=== PATIENT | male | born 1940 | race Caucasian/White ===

== ENCOUNTER 2017-09-04 11:24 | Observation (INO) | payer MEDICARE, OTHER ==
[2017-09-04 12:06] VITALS: BMI 27.8
--- NOTE | 2017-09-04 12:41 | C.PDOC ---
History Of Present Illness 77yo male with past medical history of hypertension, presents to ED for evaluation after he had a syncopal episode last night. Patient states he was at his desk doing paperwork and was calling someone on the phone during which he had a syncopal episode. Patient states he has no recollection of his episode and reports when he came to, he was dazed and confused. He reports there was carpet on the floor and is unsure of head injury due to a fall during the syncopal episode. Of note, patient states he was exercising after a long time yesterday and states he gets hypotensive after long periods of exertion. He denies any chest pain, headache, shortness of breath, abdominal pain. He has no other medical complaints. Time Seen by Provider: 09/04/17 11:59 Chief Complaint (Nursing): Syncope History Per: Patient History/Exam Limitations: no limitations Onset/Duration Of Symptoms: Days Number Of Syncopal Episodes: 1 Activity At Onset Of Symptoms: Sitting Associated Symptoms Preceding Syncopal Episode: No Predromal Symptoms (Sudden Onset) Past Medical History Reviewed: Historical Data, Nursing Documentation, Vital Signs Vital Signs: Last Vital Signs Temp 97.8 F 09/04/17 14:32 Pulse 61 09/04/17 14:32 Resp 18 09/04/17 14:32 BP 152/74 H 09/04/17 14:32 Pulse Ox 100 09/04/17 14:32 - Medical History PMH: Depression, HTN, Hypercholesterolemia Denies: Chronic Kidney Disease Surgical History: Denies: Pacemaker - [facility] Procedures COLONOSCOPY (01/09/05) ESOPHAGOGASTRODUODENOSCOPY [EGD] W/CLOSED BIOPSY (02/10/00) Family History: States: Unknown Family Hx - Social History Hx Alcohol Use: Yes (SOCIAL) Hx Substance Use: No - Immunization History Hx Tetanus Toxoid Vaccination: No Hx Influenza Vaccination: No Hx Pneumococcal Vaccination: No Review Of Systems Except As Marked, All Systems Reviewed And Found Negative. Cardiovascular: Negative for: Chest Pain Respiratory: Negative for: Shortness of Breath Gastrointestinal: Negative for: Abdominal Pain Neurological: Positive for: Other (syncopal episode). Negative for: Headache Physical Exam - Physical Exam Appears: Non-toxic, No Acute Distress Skin: Normal Color, Warm, Dry Head: Normacephalic, Tenderness (small tender hematoma to right posterior scalp) Eye(s): bilateral: Normal Inspection, PERRL, EOMI Neck: Normal ROM, Supple Cardiovascular: Rhythm Regular, Murmur Respiratory: Normal Breath Sounds Gastrointestinal/Abdominal: Normal Exam, Soft, No Tenderness Back: Normal Inspection Extremity: Normal ROM, No Pedal Edema Neurological/Psych: Oriented x3, Normal Speech, Normal Cognition, Normal Cranial Nerves, Normal Motor, Normal Sensation, Normal Reflexes ED Course And Treatment - Laboratory Results Result Diagrams: 09/04/17 13:10 09/04/17 13:10 ECG: Interpreted By Me, Viewed By Me ECG Rhythm: Sinus Rhythm, 1st Degree HB, R BBB Rate From EC O2 Sat by Pulse Oximetry: 97 (RA) Pulse Ox Interpretation: Normal Medical Decision Making Medical Decision Making: Impression: Syncopal episode Plan: -- Labs -- CT Head -- CXR Disposition Discussed With : Art Pfeiffer Doctor Will See Patient In The: Hospital Counseled Patient/Family Regarding: Studies Performed, Diagnosis - Disposition Disposition: HOSPITALIZED Disposition Time: 14:42 Condition: STABLE Forms: [facility] ([place]) - POA Present On Arrival: None - Clinical Impression Clinical Impression: Syncope - Scribe Statement The provider has reviewed the documentation as recorded by the Wolfgang Castro Provider Attestation: All medical record entries made by the Wolfgang were at my direction and personally dictated by me. I have reviewed the chart and agree that the record accurately reflects my personal performance of the history, physical exam, medical decision making, and the department course for this patient. I have also personally directed, reviewed, and agree with the discharge instructions and disposition. Decision To Admit - Pt Status Changed To: Hospital Disposition Of: Observation - InPatient: Physician Admission Certification: I certify that this patient requires 2 or more midnights of care for the following reason:: syncope - . Bed Request Type: Telemetry Patient Diagnosis: Syncope
[2017-09-04 13:14] LABS: BASO # 0.1 K/uL (0.0-0.2); BASO % 1.2 % (0.0-2.0); EOS # 0.2 K/uL (0.0-0.7); EOS % 2.4 % (0.0-4.0); HEMOGLOBIN 14.4 g/dL (12.0-18.0); LYMPH # 1.9 K/uL (1.0-4.3); LYMPH % 26.8 % (20.0-40.0); MEAN CELL VOLUME 104.4 fL (80.0-94.0); MEAN CORPUSCULAR HEMOGLOBIN 35.6 pg (27.0-31.0); MEAN CORPUSCULAR HGB CONC 34.1 g/dL (33.0-37.0); MEAN PLATELET VOLUME 9.4 fL (7.2-11.7); MONO # 0.6 K/uL (0.0-0.8); MONO % 8.4 % (0.0-10.0); NEUT # 4.4 K/uL (1.8-7.0); NEUT % 61.2 % (50.0-75.0); RBC 4.05 Mil/uL (4.40-5.90); WHITE BLOOD COUNT 7.3 K/uL (4.8-10.8)
--- NOTE | 2017-09-04 13:23 | CT ---
PROCEDURE: CT HEAD WITHOUT CONTRAST. HISTORY: AMS COMPARISON: None available. TECHNIQUE: Axial computed tomography images were obtained through the head/brain without intravenous contrast. Radiation dose: Total exam DLP = 944.36 mGy-cm. This CT exam was performed using one or more of the following dose reduction techniques: Automated exposure control, adjustment of the mA and/or kV according to patient size, and/or use of iterative reconstruction technique. FINDINGS: HEMORRHAGE: No intracranial hemorrhage. BRAIN: Diffuse atrophy with prominence of the ventricles and sulci noted. No mass effect or edema. Intracranial atherosclerotic cyst. Scattered periventricular and subcortical white matter hypodensities, which are nonspecific, but often seen with chronic microvascular ischemic disease. Please note that MRI with diffusion imaging is more sensitive in the detection of acute ischemic event. VENTRICLES: No hydrocephalus. CALVARIUM: Unremarkable. PARANASAL SINUSES: Unremarkable as visualized. No significant inflammatory changes. MASTOID AIR CELLS: Unremarkable as visualized. No inflammatory changes. OTHER FINDINGS: None. IMPRESSION: No acute intracranial pathology identified. Findings as above.
--- NOTE | 2017-09-04 13:28 | RAD ---
PROCEDURE: CHEST RADIOGRAPH, 1 VIEW HISTORY: AMS COMPARISON: 03/16/2017 FINDINGS: LUNGS: Current lung volumes less than before. No interval consolidation PLEURA: No pneumothorax or significant appearing pleural fluid seen. A minimal left costophrenic angle effusion and/or thickening is not excluded. Shallow lung volumes limits optimal evaluation CARDIOVASCULAR: Cardiomegaly similar OSSEOUS STRUCTURES: Minimal bilateral shoulder arthrosis. And mild inferior thoracic spondylosis VISUALIZED UPPER ABDOMEN: Normal. OTHER FINDINGS: None. IMPRESSION: No interval pathology noted.
[2017-09-04 13:56] LABS: ALB/GLOB RATIO 1.2 (1.0-2.1); ALBUMIN 4.1 g/dL (3.5-5.0); CALCIUM 10.2 mg/dl (8.6-10.4)
[2017-09-04 14:11] LABS: TROPONIN I 0.014 ng/mL (0.00-0.120)
--- NOTE | 2017-09-04 18:29 | CP.PCM.HP ---
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 According to his , he slowly regained his full consciousness after 15 minutes. There was no urine of fecal incontinence, no focal weakness after his recovery. Known to have a hypertension, a hyperlipidemia, a mild aortic stenosis, a s/p left partial nephrectomy for cancer on 2011 at [facility], he had a normal nuclear stress test 2 years ago. Present on Admission - Present on Admission Any Indicators Present on Admission: No Review of Systems - Neurological Neurological: Syncope Past Patient History - Infectious Disease Hx of Infectious Diseases: None - Tetanus Immunizations Tetanus Immunization: Unknown - Past Medical History & Family History Past Medical History?: Yes - Past Social History Smoking Status: Never Smoked Alcohol: None Drugs: Denies Home Situation {Lives}: With Family Domestic Violence: Negative - CARDIAC Hx Hypercholesterolemia: Yes Hx Hypertension: Yes Hx Pacemaker: No - PULMONARY Hx Respiratory Disorders: No - NEUROLOGICAL Hx Paralysis: No - HEENT Hx Cataracts: Yes - RENAL Hx Chronic Kidney Disease: No - ENDOCRINE/METABOLIC Hx Endocrine Disorders: Yes 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) - HEMATOLOGICAL/ONCOLOGICAL Hx Blood Transfusions: No Hx Blood Transfusion Reaction: No Hx Cancer: Yes (left kidney) - INTEGUMENTARY Hx Dermatological Problems: No - MUSCULOSKELETAL/RHEUMATOLOGICAL Hx Musculoskeletal Disorders: No - GASTROINTESTINAL Hx Gastrointestinal Disorders: No - GENITOURINARY/GYNECOLOGICAL Hx Genitourinary Disorders: No - PSYCHIATRIC Hx Depression: Yes Hx Substance Use: No - SURGICAL HISTORY Hx Surgeries: Yes (PART NEPHRECTOMY, BRITTANY CATARACTS in 2011 at [facility].) - ANESTHESIA Hx Anesthesia Reactions: No Hx Malignant Hyperthermia: No Meds Allergies/Adverse Reactions: Allergies Allergy/AdvReac Type Severity Reaction Status Date / Time tramadol Allergy Severe ITCHING Verified 10/18/16 17:58 Physical Exam - Constitutional Appears: Well, No Acute Distress - Head Exam Head Exam: NORMAL INSPECTION - Eye Exam Eye Exam: Normal appearance - ENT Exam ENT Exam: Normal Exam - Neck Exam Neck exam: Positive for: Normal Inspection Additional comments: Mild left carotid bruit. - Respiratory Exam Respiratory Exam: Clear to Auscultation Bilateral, NORMAL BREATHING PATTERN - Cardiovascular Exam Cardiovascular Exam: REGULAR RHYTHM, Systolic Murmur - GI/Abdominal Exam GI & Abdominal Exam: Normal Bowel Sounds, Soft - Rectal Exam Rectal Exam: Deferred - Exam Exam: NORMAL INSPECTION - Extremities Exam Extremities exam: Positive for: normal inspection - Back Exam Back exam: NORMAL INSPECTION - Neurological Exam Neurological exam: Alert, Oriented x3 - Psychiatric Exam Psychiatric exam: Anxious - Skin Skin Exam: Dry, Intact, Normal Color, Warm Results - Vital Signs Recent Vital Signs: Last Vital Signs Temp 97.8 F 09/04/17 14:32 Pulse 61 09/04/17 14:32 Resp 18 09/04/17 14:32 BP 152/74 H 09/04/17 14:32 Pulse Ox 97 09/04/17 14:42 - Labs Result Diagrams: 09/04/17 13:10 09/04/17 13:10 Labs: Laboratory Results - last 24 hr 09/04/17 09/04/17 09/04/17 12:02 13:10 13:10 WBC 7.3 RBC 4.05 L Hgb 14.4 Hct 42.2 MCV 104.4 H MCH 35.6 H MCHC 34.1 RDW 13.0 Plt Count 138 MPV 9.4 Neut % (Auto) 61.2 Lymph % (Auto) 26.8 [place] % (Auto) 8.4 Eos % (Auto) 2.4 Baso % (Auto) 1.2 Neut # 4.4 Lymph # 1.9 [place] # 0.6 Eos # 0.2 Baso # 0.1 Sodium 140 Potassium 4.6 Chloride 100 Carbon Dioxide 33 H Anion Gap 11 BUN 21 H Creatinine 1.6 H Est GFR ( Amer) 51 Est GFR (Non-Af Amer) 42 POC Glucose (mg/dL) 176 H Random Glucose 120 H Calcium 10.2 Total Bilirubin 0.6 AST 33 ALT 21 Alkaline Phosphatase 56 Troponin I 0.0140 Total Protein 7.7 Albumin 4.1 Globulin 3.6 Albumin/Globulin Ratio 1.2 Assessment & Plan (1) Syncope Assessment and Plan: Neurological evaluation. Echo to assess . Carotid dupl>ex scan, MRI of the head, EEG Status: Acute (2) Aortic stenosis Status: Chronic (3) Hypertension Status: Acute Decision To Admit - Pt Status Changed To: Hospital Disposition Of: Observation - . Bed Request Type: Telemetry Admitting Physician: Art Pfeiffer
[2017-09-05 00:56] VITALS: RESP 20
[2017-09-05] MEDS ORDERED: VILAZODONE HCL 10 MG PO SCH (10:00)
--- NOTE | 2017-09-05 11:29 | VASCLAB ---
PROCEDURE: HISTORY: syncope COMPARISON: None available. TECHNIQUE: Grayscale and duplex Doppler evaluation of the cervical carotid and vertebral arteries were performed. The common carotid, carotid bifurcations and cervical Internal Carotid Artery (ICA) and proximal External Carotid Artery (ECA) were evaluated. The vertebral arteries were evaluated for gross patency and flow direction. Report prepared by Rony Lubin, BS, RVT FINDINGS: RIGHT CAROTID ARTERIES: 1. Common Carotid Artery: No significant focal plaque formation of the right common carotid artery. Maximum Peak Systolic velocity: 131 cm/sec: End-diastolic velocity 16 cm/sec. 2. Carotid Bifurcation: plaque formation. Maximum Peak Systolic velocity: 99 cm/sec: End-diastolic velocity 8 cm/sec. 3. Internal Carotid Artery: No significant focal plaque. Plaque description: 3.1. Proximal Segment: Peak systolic velocity 95 cm/sec: End-diastolic velocity 19 cm/sec - % stenosis 0-15% 3.2. Middle Segment: Peak systolic velocity 109 cm/sec: End-diastolic velocity 25 cm/sec - % stenosis 0-15% 3.3. Distal Segment: Peak systolic velocity 100 cm/sec: End-diastolic velocity 25 cm/sec - % stenosis 0-15% 4. External Carotid Artery: No significant focal plaque formation. Peak systolic velocity 123 cm/sec 5. ICA/CCA Ratio: 0.8 LEFT CAROTID ARTERIES: 1. Common Carotid Artery: No significant focal plaque formation of the left common carotid artery. Maximum Peak Systolic velocity: 136 cm/sec: End-diastolic velocity 15 cm/sec. 2. Carotid Bifurcation: plaque formation. Maximum Peak Systolic velocity: 139 cm/sec: End-diastolic velocity 21 cm/sec. 3. Internal Carotid Artery: No significant focal plaque. Plaque description: 3.1. Proximal Segment: Peak systolic velocity 73 cm/sec: End-diastolic velocity 16 cm/sec - % stenosis 0-15% 3.2. Middle Segment: Peak systolic velocity 77 cm/sec: End-diastolic velocity 16 cm/sec - % stenosis 0-15% 3.3. Distal Segment: Peak systolic velocity 67 cm/sec: End-diastolic velocity 16 cm/sec - % stenosis 0-15% 4. External Carotid Artery: No significant focal plaque formation. Peak systolic velocity 88 cm/sec 5. ICA/CCA Ratio: 1.0 VERTEBRAL ARTERIES: 1. Right Vertebral Artery: The right vertebral artery flow direction is antegrade. 2. Left Vertebral Artery: The left vertebral artery flow direction is antegrade. OTHER FINDINGS: 1. Right Brachial Blood pressure: 140 mmHg. 2. Left Brachial Blood pressure: 140 mmHg. IMPRESSION: RIGHT: Duplex scan does not suggest hemodynamically significant stenosis of the right extracranial carotid arteries. LEFT: Duplex scan does not suggest hemodynamically significant stenosis of the left extracranial carotid arteries.
--- NOTE | 2017-09-05 13:48 | MRI ---
PROCEDURE: MRI BRAIN WITHOUT CONTRAST HISTORY: Syncope COMPARISON: Noncontrast head CT from 09/04/2017. TECHNIQUE: Multiplanar, multisequence MR images of the brain were obtained without intravenous contrast enhancement. FINDINGS: HEMORRHAGE: None DWI: No evidence of an acute or early subacute infarction. BRAIN PARENCHYMA: There are moderate chronic microangiopathic changes. There no mass, mass effect or abnormal extra-axial fluid collection. The midline sagittal structures are normal. VENTRICLES: There is moderate age-related global parenchymal volume loss and proportionate enlargement of the ventricles and cortical sulci. CRANIUM: There is normal bone marrow signal pattern. ORBITS: Grossly unremarkable. PARANASAL SINUSES/MASTOIDS: Predominantly clear. VASCULAR SYSTEM: There are normal signal voids in the larger intracranial arteries. OTHER FINDINGS: None. IMPRESSION: 1. No acute intracranial abnormality. 2. Moderate chronic microangiopathic changes and moderate age-related global parenchymal volume loss.
--- NOTE | 2017-09-05 18:34 | CP.PCM.PN ---
Subjective - Date & Time of Evaluation Date of Evaluation: 09/05/17 Time of Evaluation: 18:32 - Subjective Subjective: Patient has no complaint. EEG, carotid duplex scan, head MRI WNL. Awaiting Echo to assess . Objective - Vital Signs/Intake and Output Vital Signs (last 24 hours): Temp Pulse Resp BP Pulse Ox 98.3 F 55 L 20 116/65 96 09/05/17 15:44 09/05/17 15:44 09/05/17 15:44 09/05/17 15:44 09/05/17 15:44 - Medications Medications: Current Medications Amlodipine Besylate (Norvasc) 10 mg PO HS [facility] Last Admin: 09/04/17 22:15 Dose: 10 mg Aspirin (Ecotrin) 81 mg PO DAILY [facility] Last Admin: 09/05/17 09:35 Dose: 81 mg Losartan Potassium (Cozaar) 100 mg PO QPM [facility] Last Admin: 09/04/17 18:14 Dose: 100 mg Rosuvastatin Calcium (Crestor) 20 mg PO HS [facility] Last Admin: 09/04/17 22:15 Dose: 20 mg Tamsulosin HCl (Flomax) 0.4 mg PO DAILY [facility] Last Admin: 09/05/17 09:35 Dose: 0.4 mg Zolpidem Tartrate (Ambien) 5 mg PO HS PRN PRN Reason: Insomnia Last Admin: 09/04/17 22:38 Dose: 5 mg - Labs Labs: 09/04/17 13:10 09/04/17 13:10 - Constitutional Appears: No Acute Distress - Head Exam Head Exam: NORMOCEPHALIC - Eye Exam Eye Exam: Normal appearance - ENT Exam ENT Exam: Normal Exam - Neck Exam Neck Exam: Normal Inspection - Respiratory Exam Respiratory Exam: Clear to Ausculation Bilateral - Cardiovascular Exam Cardiovascular Exam: REGULAR RHYTHM, Murmur - GI/Abdominal Exam GI & Abdominal Exam: Soft, Normal Bowel Sounds - Rectal Exam Rectal Exam: Deferred - Extremities Exam Extremities Exam: Normal Inspection - Back Exam Back Exam: NORMAL INSPECTION - Neurological Exam Neurological Exam: Alert, Awake, Normal Gait, Oriented x3 - Psychiatric Exam Psychiatric exam: Anxious - Skin Skin Exam: Dry, Intact, Normal Color, Warm Assessment and Plan (1) Syncope Assessment & Plan: Awaiting Echo. Status: Acute (2) Aortic stenosis Assessment & Plan: Awaiting Echo. Status: Chronic (3) Hypertension Assessment & Plan: To continue same meds. Status: Acute
--- NOTE | 2017-09-06 00:29 | CON ---
DATE: NEUROLOGY CONSULTATION REASON FOR CONSULTATION: Episode of passing out. HISTORY OF PRESENT ILLNESS: The patient is a 77-year-old male, who has been asked for evaluation of episode of passing out. The patient was sitting at his desk and was on the phone. The last thing he remembers is being on the phone, and after that the heard a thump and found him on the floor. The patient was unconscious for a brief period of time. There was no urinary incontinence or tongue biting. The patient did not experience any chest pain, palpitation or light headedness before passing out. He denies any focal weakness in the arms or legs. At present, he feels fine. REVIEW OF SYSTEMS: Denies any headache, dizziness, chest pain, shortness of breath, abdominal pain, constipation, diarrhea, dysuria, cough or sputum production. PAST MEDICAL HISTORY: Includes mild aortic stenosis, hypertension, hyperlipidemia, history of renal cancer. PAST SURGICAL HISTORY: Includes nephrectomy. MEDICATIONS AT HOME: Include amlodipine, Viibryd, Diovan, Flomax, multivitamin, Lipitor, and aspirin. ALLERGIES: TO TRAMADOL. SOCIAL HISTORY: Denies smoking, socially drinks alcohol, denies use of any illicit drugs. FAMILY HISTORY: Reviewed and noncontributory to the case. PHYSICAL EXAMINATION: GENERAL: The patient is an elderly pleasant male, lying on the bed, in no acute distress. VITAL SIGNS: Blood pressure 131/73, heart rate is 57 per minute, breathing at the rate of 16 per minute, temperature is 98 degrees Fahrenheit. HEENT: Head is normocephalic, atraumatic. NECK: Supple. There are no carotid bruits. LUNGS: Clear. CARDIOVASCULAR SYSTEM: S1 and S2 are audible. No murmurs. ABDOMEN: Soft and nontender with bowel sounds present. NEUROLOGY: Mental status: The patient is awake, alert, oriented to time, place, person. Speech is fluent. Naming and repetition normal. Memory and cognition are intact. Cranial nerve examination: Pupils are 3 mm, bilaterally reactive to light. Visual locke are full. Extraocular movements are intact. There is no facial asymmetry. Palate is upgoing bilaterally and tongue is midline. Motor examination: Tone is normal. Power is 5/5 bilaterally in all extremities. Reflexes are +1 and symmetrical. Plantars downgoing bilaterally. Cerebellar examination: [id number]-puzz shows no dysmetria. Gait is deferred at the moment. LABORATORY DATA: Labs reviewed. MRI of the brain shows no acute intracranial abnormality. Moderate chronic microangiopathic changes and moderate age-related global parenchymal volume loss. He had a carotid Doppler study, which shows no significant stenosis. He also had an electroencephalogram done, which was normal. IMPRESSION: Syncope. Rule out any cardiac arrhythmias verses questionable seizure. RECOMMENDATION: 1. The patient had an electroencephalogram, which is normal. 2. The patient to have cardiac monitoring to look for any evidence or cardiac arrhythmias. 3. If no other etiology is found, then the patient may need an extended electroencephalographic monitoring. 4. If the patient is clear from cardiac standpoint, then he may be discharged with outpatient followup. Thank you for the opportunity to participate in the care of this patient. Yue Wakefield MD
--- NOTE | 2017-09-06 07:05 | EEG ---
DATE: INTRODUCTION: This is a digitally recorded EEG monitoring using the standard EEG montages. BACKGROUND RHYTHM: The EEG shows a background activity of 8 to 9 Hz alpha activity in parieto-occipital region. The EEG activity is bilaterally symmetrical and synchronous. There is attenuation of the background activity on eye opening. Drowsiness was noted by slowing of the background activity. ABNORMAL POTENTIALS: No spike, sharp waves, or focal slowing was seen. PHOTIC STIMULATION AND HYPERVENTILATION: Photic stimulation did not reveal any abnormality. Hyperventilation was not performed. IMPRESSION: Normal electroencephalogram. No epileptiform activity is seen in this electroencephalogram recording. Yue Wakefield MD
--- NOTE | 2017-09-06 16:05 | CARD ---
APPROVED REPORT EXAM: Two-dimensional and M-mode echocardiogram with Doppler and color Doppler. Other Information Quality : GoodRhythm : INDICATION Syncope CORATID STENOSIS, AORTIC STENOSIS RISK FACTORS Hypertension 2D DIMENSIONS IVSd0.9 (0.7-1.1cm)LVDd5.0 (3.9-5.9cm) LVOT Diameter2.5 (1.8-2.4cm)PWd0.9 (0.7-1.1cm) LVDs2.5 (2.5-4.0cm)FS (%) 49.4 % LVEF (%)80.6 (>50%) M-Mode DIMENSIONS Left Atrium (MM)4.17 (2.5-4.0cm)Aortic Root3.70 (2.2-3.7cm) Aortic Valve AoV Peak Ngncbslx347.3cm/sAoV VTI50.8cmAO Peak GR.24mmHg LVOT Peak Qjgebfub625.3cm/sLVOT VTI21.64cmAO Mean GR.13mmHg CHRISTY (VMAX)2.09dm9MDB (VTI)2.03cm2 Mitral Valve MV E Kfjpgaif45.5cm/sMV A Qamikhtb65.9cm/sE/A ratio0.8 TDI E/Lateral E'0.0E/Medial E'0.0 Tricuspid Valve TR Peak Rhnqjirj164fp/sTR Peak Gr.38btTmEHRN95oqMv LEFT VENTRICLE The left ventricle is normal size. There is normal left ventricular wall thickness. The left ventricular function is normal. The left ventricular ejection fraction is within the normal range. There is normal LV segmental wall motion. Transmitral Doppler flow pattern is normal for age. RIGHT VENTRICLE The right ventricle is normal size. The right ventricular systolic function is normal. ATRIA Normal left atrial index. The right atrium size is normal. AORTIC VALVE The aortic valve is sligtly calcified but opens well. Peak velocity - 2.5 m/sec. Aortic valve area - 2.0 - 2.1 cm2 MITRAL VALVE The mitral valve is normal in structure. There is no mitral valve regurgitation noted. TRICUSPID VALVE The tricuspid valve is normal in structure. There is mild tricuspid regurgitation. Right ventricular systolic pressure is estimated at less than 30 mmHg. PULMONIC VALVE The pulmonary valve is normal in structure. There is trace to mild pulmonic valvular regurgitation. GREAT VESSELS The aortic root is normal in size. The IVC is normal in size and collapses >50% with inspiration. PERICARDIAL EFFUSION There is no pericardial effusion. <Conclusion> Normal bi-ventricular function. Mild aortic valve sclerosis. No pericardial effusion.
--- NOTE | 2017-09-06 16:07 | CP.PCM.PN ---
Subjective - Date & Time of Evaluation Date of Evaluation: 09/06/17 Time of Evaluation: 16:04 - Subjective Subjective: Patient has no complaint. Echo : Normal LV wall motion, LVEF=61 %. Mild TR, and minimal . Syncopy could be the result of hypotension. Will decrease Amlodipine to 5 mg PO qd. Discharge the patient home today. Follow up with Dr Yue Wakefield for a 24 hours EEG. Objective - Vital Signs/Intake and Output Vital Signs (last 24 hours): Temp Pulse Resp BP Pulse Ox 98.3 F 54 L 20 125/70 95 09/06/17 08:25 09/06/17 11:43 09/06/17 08:25 09/06/17 08:25 09/06/17 08:25 Intake and Output: 09/06/17 09/06/17 06:59 18:59 Intake Total 240 Balance 240 - Medications Medications: Current Medications Amlodipine Besylate (Norvasc) 10 mg PO HS [facility] Last Admin: 09/05/17 21:51 Dose: 10 mg Aspirin (Ecotrin) 81 mg PO DAILY [facility] Last Admin: 09/06/17 10:05 Dose: 81 mg Losartan Potassium (Cozaar) 100 mg PO QPM [facility] Last Admin: 09/05/17 18:01 Dose: 100 mg Rosuvastatin Calcium (Crestor) 20 mg PO HS [facility] Last Admin: 09/05/17 21:51 Dose: 20 mg Tamsulosin HCl (Flomax) 0.4 mg PO DAILY [facility] Last Admin: 09/06/17 10:05 Dose: 0.4 mg Zolpidem Tartrate (Ambien) 5 mg PO HS PRN PRN Reason: Insomnia Last Admin: 09/05/17 23:52 Dose: 5 mg - Labs Labs: 09/04/17 13:10 09/04/17 13:10 - Constitutional Appears: No Acute Distress - Head Exam Head Exam: NORMAL INSPECTION - Eye Exam Eye Exam: Periorbital tenderness - ENT Exam ENT Exam: Normal Exam - Neck Exam Neck Exam: Normal Inspection - Respiratory Exam Respiratory Exam: Clear to Ausculation Bilateral, NORMAL BREATHING PATTERN - Cardiovascular Exam Cardiovascular Exam: REGULAR RHYTHM, Murmur - GI/Abdominal Exam GI & Abdominal Exam: Soft, Normal Bowel Sounds - Rectal Exam Rectal Exam: Deferred - Extremities Exam Extremities Exam: Normal Inspection - Back Exam Back Exam: NORMAL INSPECTION - Neurological Exam Neurological Exam: Alert, Awake, Normal Gait, Oriented x3 - Psychiatric Exam Psychiatric exam: Anxious - Skin Skin Exam: Dry, Intact, Normal Color, Warm Assessment and Plan (1) Syncope Status: Resolved (2) Aortic stenosis Assessment & Plan: Minimal As per Echo. Status: Chronic (3) Hypertension Status: Chronic
[2017-09-06 16:33] VITALS: BP 126/72; PULSE 58; TEMP 98.7; O2SAT 97
--- NOTE | 2017-09-07 04:12 | CARD ---
APPROVED REPORT EKG Measurement Heart [id number] <Conclusion> Sinus rhythm with 1st degree AV block Left axis deviation Right bundle branch block Minimal voltage criteria for LVH, may be normal variant Abnormal ECG
== END 2017-09-06 16:40 | disposition home or self-care (01) ==
LOC: C.ER 11:24 → C.9E 14:43 → C.6T 16:39
PROVIDERS: ADMIT Internal Medicine Cardiovascular Disease; ATTEND Internal Medicine Cardiovascular Disease
DX: R55 Syncope and collapse (principal); E11.9 Type 2 diabetes mellitus without complications; E78.00 Pure hypercholesterolemia, unspecified; I10 Essential (primary) hypertension; I35.0 Nonrheumatic aortic (valve) stenosis; Z85.528 Personal history of other malignant neoplasm of kidney; Z90.5 Acquired absence of kidney
CPT/HCPCS: 36415; 70450; 70551; 71045; 80053; 82948; 84146; 84484; 85025; 93306; 93880; 95812; 99285; G0378

== ENCOUNTER 2018-08-30 15:49 | Outpatient (CLI) | payer MEDICARE, OTHER | END 2018-08-30 15:50 | disposition home or self-care (01) | LOC: C.RADIC 15:49 | DX: K59.00 Constipation, unspecified (principal) ==